=== PATIENT | female | born 1975 | race Hispanic/Latino ===

== ENCOUNTER → 2020-02-04 | Outpatient (CLI) | payer OTHER, MEDICARE ==
[~2020-02-04] MED LIST: IOPAMIDOL 200 MG/ML 20 ML VIAL IT ONE
[2020-02-04 08:17] LABS: HEMOGLOBIN 11.3 g/dL (12.0-16.0)
[2020-02-04 08:30] LABS: INR 0.85
[2020-02-04 08:31] LABS: PARTIAL THROMBOPLASTIN TIME 27.7 seconds (23.8-35.5)
== END ==
LOC: MRI 07:34
PROVIDERS: ATTEND Orthopaedic Surgery Orthopaedic Surgery of the Spine
DX: M54.12 Radiculopathy, cervical region (principal); M54.5 Low back pain; W19.XXXA Unspecified fall, initial encounter
CPT/HCPCS: 36415; 62302; 72126; 72148; 77002; 85014; 85049; 85610; 85730; Q9967